=== PATIENT | male | born 1995 | race Two or more races ===

== ENCOUNTER 2025-08-04 15:56 | Emergency (ER) | payer MEDICAID, SELFPAY ==
[2025-08-04 15:57] VITALS: BMI 25.0
[2025-08-04 16:10] VITALS: BP 136/76; PULSE 85; RESP 18; TEMP 37.5; O2SAT 99
--- NOTE | 2025-08-04 17:45 | XR_ITS ---
Examination: Lumbar spine 3 views Technique: AP lateral coned lateral lower lumbar spine 3 views Date and time: July 04, 2025 1752 hrs. Indications: Back pain beginning 2 years ago. Findings: Satisfactory alignment lumbar vertebral bodies. Mild disc narrowing L5-S1. No fracture. Impression: Mild disc narrowing L5-S1
--- NOTE | 2025-08-04 17:45 | PD.EDRME ---
Rapid Medical Screening Exam E Arrival date/time: 08/04/25 15:56 This is a 29-year-old male that comes into the emergency room with complaints of lower back pain that is been going on for over a year. Patient states that he was seen by the [facility] and x-rays were ordered. Patient states his appointment is not for a couple weeks. Patient states the pain is constant. Patient denies any numbness tingling. Patient denies any loss of bowel or bladder control. Patient denies any trauma injury or fall. Patient denies urinary symptoms but states that sometime when he has a bowel movement. I have greeted and performed a focused initial assessment of this patient. Initial appropriate labs ordered at this time. A comprehensive ED assessment and evaluation of the patient and analysis of all test and completion of medical decision making process will be conducted by additional ED provider. Chief Complaint: Back Pain/Injury Time Seen by Provider: 08/04/25 17:30 Vital signs: Vital Signs Temperature 99.5 F 08/04/25 16:10 Pulse Rate 85 08/04/25 16:10 Respiratory Rate 18 08/04/25 16:10 Blood Pressure 136/76 H 08/04/25 16:10 Pulse Oximetry (%) 99 08/04/25 16:10 Oxygen Delivery Method Room Air 08/04/25 16:10
[2025-08-04 18:02] LABS: Collection Type, Urine Voided; Squamous Epithelial Cell,Urine 0 /hpf (0-5)
[2025-08-04 18:10] LABS: Bilirubin,Urine Negative (Negative); Blood,Urine Negative (Negative); Clarity,Urine Clear (Clear/Hazy); Color,Urine Yellow (Lt Yel-Yel); Culture Indicated,Urine Not Indicated; Glucose, Urine Negative (Negative); Ketones,Urine Trace (Negative); Leukocyte Esterase,Urine Negative (Negative); Nitrite,Urine Negative (Negative); PH,Urine 7.0 (5.0-7.0); Protein,Urine Trace (Neg - Trace); RBC,Urine 1 /hpf (0-3); Specific Gravity,Urine 1.032 (1.001-1.035); Urobilinogen,Urine 3.0 mg/dL (0.0-1.0); WBC,Urine 1 /hpf (0-5)
[2025-08-04] MEDS: ONDANSETRON ODT 4 MG TABRAP PO (18:11)
[2025-08-04] MEDS: KETOROLAC INJ 60 MG/2 ML VIAL IM (18:12)
--- NOTE | 2025-08-04 19:38 | EDNOTE_ITS ---
ED Back Injury Pain RME/HPI General Chief Complaint: Back Pain/Injury Stated Complaint: COCCYX PAIN FOR 1 MONTH Time Seen by Provider: 08/04/25 17:30 Arrival date/time: 08/04/25 15:56 RME / HPI RME / HPI Narrative: 29-year-old male that comes into the emergency room with complaints of lower back pain that is been going on for over 2 years. Patient states that he was seen by the [facility] and x-rays were ordered. Patient states his appointment is not for a couple weeks. Patient states the pain is constant. Patient denies any numbness tingling. Patient denies any loss of bowel or bladder control. Patient denies any trauma injury or fall. Patient denies urinary symptoms but states that sometime when he has a bowel movement. Patient denies any blood in the stool. Denies any other complaints no medications taken prior to arrival. Related Data Previous Rx's ?Medication ?Instructions ?Recorded metformin 500 mg tablet 500 mg PO BIDWMEAL #60 tabs 08/16/24 acamprosate 333 mg tablet,delayed 666 mg (2 x 333 mg) PO TID #180 08/22/24 release tabs ibuprofen 800 mg tablet 800 mg PO Q8H PRN pain #30 t abs 08/04/25 methocarbamol 500 mg tablet 500 mg PO Q8H PRN pain #30 tabs 08/04/25 Allergies Allergy/AdvReac Type Severity Reaction Status Date / Time No Known Allergies Allergy Verified 08/04/25 15:59 Review of Systems Review of Systems Narrative Review of Systems: Review of system reviewed and within normal limits except mentioned in HPI ED Exam Narrative Physical exam: VITAL SIGNS: Reviewed. GENERAL APPEARANCE: Alert and interactive, follows commands, no acute distress, HEAD AND FACE: Non-traumatic. ENT: PERRL, pink conjunctivitis, eyelid no trauma, Mucous membrane moist. NECK: Supple, nontender, no nuchal rigidity. CHEST: No tenderness, no crepitus, no paradoxical movement, no retractions. LUNGS: Clear, well ventilated, symmetric, no rales, no wheezing, no ronchi, no stridor, good breath sounds bilaterally. HEART: Regular rate, regular rhythm, no murmur, no gallops. ABDOMEN: Soft, positive bowel sounds, nondistended, no guarding, nontender, no rebound, no masses, RECTAL: Deferred. GENITAL: Deferred. NEUROLOGICAL: Gross motor function intact sensory function intact, Appropriate for age. MUSCULOSKELETAL: low back tenderness, no redness no masses palpated no midline tenderness, full range of motion. EXTREMITIES: Nontender, full range of motion. Course Quality Measures none Orders Category Date Time Status XR lumbar spine 2-3V Stat Exams 08/04/25 17:45 Taken Urinalysis, C/S if Indicated Stat Lab 08/04/25 17:50 Completed HYDROcodone/APAP 10/325 [[place] 10/325] Med 08/04/25 19:37 Once 1 tab PO X1 ONE Ketorolac Inj [Toradol Inj] Med 08/04/25 17:45 Discontinued 60 mg IM X1 ONE Ondansetron Odt [Zofran Odt] Med 08/04/25 17:45 Discontinued 4 mg PO X1 ONE methocarbamoL [Robaxin] Med 08/04/25 19:37 Once 500 mg PO X1 ONE Vital Signs Vital signs: Vital Signs Temperature 99.5 F 08/04/25 16:10 Pulse Rate 85 08/04/25 16:10 Respiratory Rate 18 08/04/25 16:10 Blood Pressure 136/76 H 08/04/25 16:10 Pulse Oximetry (%) 99 08/04/25 16:10 Oxygen Delivery Method Room Air 08/04/25 16:10 Back Pain / Injury MDM Narrative MDM Narrative:: 29-year-old male that comes into the emergency room with complaints of lower back pain that is been going on for over 2 years. Patient states that he was seen by the [facility] and x-rays were ordered. Patient states his appointment is not for a couple weeks. Patient states the pain is constant. Patient denies any numbness tingling. Patient denies any loss of bowel or bladder control. Patient denies any trauma injury or fall. Patient denies urinary symptoms but states that sometime when he has a bowel movement. Patient denies any blood in the stool. Denies any other complaints no medications taken prior to arrival. Patient's urinalysis negative for UTI. X-ray of the lumbar spine came back with no acute fracture dislocation noted. Results discussed with the patient. Patient was given Toradol Robaxin and [place] with significant problem pain. Further imaging is not needed at this time patient is not showing any cauda equina syndrome. Patient stable for discharge home Patient data External records reviewed:: None Clinical information provided by:: patient Social determinants that could affect healthcare access:: none Patient has the following chronic illnesses:: None How is presenting disease/condition affected by chronic disease/condition?: no chronic disease Evaluation data The following diagnostics were reviewed and interpreted by me:: lab results and radiology exam(s) Lab and/or radiology exams considered but not ordered:: Plan Interpretation Summary: See results MDM Medications / Prescriptions Medications or Prescriptions considered but not ordered:: None Medication administrations:: Medication Administration History Discontinued Medications Ketorolac Tromethamine (Ketorolac Inj 60 Mg/2 Ml Vial) 60 mg IM X1 ONE Stop: 08/04/25 17:46 Last Admin: 08/04/25 18:12 Dose: 60 mg Documented By: Ondansetron HCl (Ondansetron Odt 4 Mg Tabrap) 4 mg PO X1 ONE; Protocol Stop: 08/04/25 17:46 Last Admin: 08/04/25 18:11 Dose: 4 mg Documented By: Toradol Harmeet Pinto Robaxin Consultations Consultation(s) initiated? (list below): No Diagnosis Differential diagnosis back pain/injury: lumbar radiculopathy, sciatica and other (Chronic low back pain) Most likely diagnosis given after review of the tests above:: Chronic low back pain Admission Indicated Admission indicated?: not indicated Explain why admission is indicated or not indicated:: Stable Admission Request Was there a request for admission?: No Disposition Plan Disposition Plan: Discharge Discharge Attestation Discharge Attestation: The patient and all family members were given an opportunity to ask questions and understood the discharge instructions. Discharge instructions specifically effects, indications for sooner follow up or return to the emergency department, and the expected course of current diagnosis. Patient condition: Stable Discharge Plan Plan Patient Disposition: HOME (Self Care) Discharge Disposition comment: Stable Prescriptions/Referrals Prescriptions/Med Rec: New ibuprofen 800 mg tablet 800 mg PO Q8H PRN (Reason: pain) Qty: 30 0RF methocarbamol 500 mg tablet 500 mg PO Q8H PRN (Reason: pain) Qty: 30 0RF No Action acamprosate 333 mg tablet,delayed release (DR/EC) 666 mg PO TID MDD 6 tabs Qty: 180 2RF metformin 500 mg tablet 500 mg PO BIDWMEAL Qty: 60 0RF Referrals: Mohit Samuel MD [Primary Care Provider, Family Practice] - In 1 week Problem List Clinical Impression: Chronic low back pain Patient/Caregiver Discharge Instructions Discharge Activity: activity as tolerated Education Materials: ED Chronic Pain Additional Instructions: Thank you for the opportunity for serving you today. You are stable for discharged . You are advised to: Follow-up with your PCP in 1 to 2 days Return to ED for worsening of symptoms Increase oral fluids Take medication as prescribed Print Language: Macedonian Stand Alone Forms: Gillian Award Info., Work/School Release, Patient Portal Info Letter PA/TOOLING MANAGER Supervising Physician PA/TOOLING MANAGER Supervising Physician: MD Gonzalo
== END 2025-08-04 20:39 | disposition home or self-care (01) ==
PROVIDERS: Nurse Practitioner Family; Emergency Provider Emergency Medicine; PCP Family Medicine
DX: M54.50 Low back pain, unspecified (principal); G89.29 Other chronic pain
CPT/HCPCS: 72100; 81001; 96372; 99283; J1885; Q0162; A9270